=== PATIENT | male | born 1945 | race Caucasian/White ===

== ENCOUNTER 2017-07-11 10:10 | Inpatient (IN) | payer BC, MEDICAID ==
[~2017-07-11] VITALS: Ht 170.2 cm; Wt 74.6 kg
[~2017-07-11 10:10] MED LIST: ACET-66 PO; AMLO-512 PO; ASPI-556 PO; ATOR40TA28 PO; B CO1CAP6 PO; CAPT25TA3 PO; GABA-529 PO; INSLAN SQ; INSU100C14 SQ; OMEP20 PO; PHOSLOC PO
[2017-07-11 10:23] LABS: GLUCOSE,POINT OF CARE 101 MG/DL (70-110)
[2017-07-11 11:46] LABS: BASOPHILS % (AUTO) 1.4 % (0.0-2.0); EOSINOPHILS % (AUTO) 7.1 % (1.0-6.0); HEMATOCRIT 28.3 % (41-53); HEMOGLOBIN 9.8 g/dL (13.5-17.5); LYMPHOCYTES % (AUTO) 23.1 % (22.0-44.0); MEAN CORPUSCULAR HEMOGLOBIN 31.4 pg (26.0-34.0); MEAN CORPUSCULAR HGB CONC 34.4 G/dL (31.0-37.0); MEAN CORPUSCULAR VOLUME 91 fL (80-100); MONOCYTES # (AUTO) 0.5 K/uL (0.1-1.0); MONOCYTES % (AUTO) 12.2 % (2.0-9.0); NEUTROPHILS # (AUTO) 2.5 K/uL (1.8-7.7); NEUTROPHILS % (AUTO) 56.2 % (40.0-70.0); PLATELET COUNT (AUTO) 244 K/uL (150-450); RED BLOOD CELL COUNT(AUTO) 3.11 MIL/uL (4.50-5.90); RED CELL DISTRIBUTION WIDTH 14.5 % (11.5-14.5); WHITE BLOOD COUNT (AUTO) 4.4 K/uL (4.5-11.0)
[2017-07-11 12:03] LABS: ANION GAP 6 mmol/L (8-16); CALCIUM, TOTAL 8.5 mg/dL (8.8-10.5); CARBON DIOXIDE 35 mmol/L (22-29); CHLORIDE 94 mmol/L (98-107); CREATININE 5.95 mg/dL (0.60-1.30); GLOMERULAR FILTR. RATE CALC 9 mL/min (>60); POTASSIUM 3.8 mmol/L (3.5-5.1); SODIUM SERUM 135 mmol/L (136-145); UREA NITROGEN, BLOOD 18 mg/dL (7-18)
[2017-07-11 12:27] LABS: B-TYPE NATRIURETIC PEPTIDE 981 pg/mL (0-100)
[2017-07-11 12:28] LABS: ALANINE AMINOTRANSFERASE 20 U/L (12-78); ALBUMIN 3.4 g/dL (3.4-5.0); ASPARTATE AMINOTRANSFERASE 22 U/L (15-37); BILIRUBIN,TOTAL 0.6 mg/dL (0.1-1.0); CREATINE KINASE MB 1.1 ng/mL (0-5); CREATINE KINASE, TOTAL 148 U/L (39-308); TOTAL PROTEIN, SERUM 8.2 g/dL (6.4-8.2)
[2017-07-11] MEDS ORDERED: AZIT250T9 PO (12:51)
[2017-07-11] MEDS ORDERED: BENZ-51 PO (12:55)
[2017-07-11] MEDS ORDERED: VITAD1000 PO (12:55)
[2017-07-11] MEDS ORDERED: AZITHROMYCIN 500 MG/NS 250 ML IV ONE (13:15)
[2017-07-11] MEDS ORDERED: CefTRIAXone 1 GM/DEXTROSE 50 ML IV ONE (13:15)
[2017-07-11] MEDS ORDERED: BUMETANIDE 0.25 MG/ML 4 ML VIAL IVP ONE (14:00)
[2017-07-11 14:45] VITALS: BP 129/71
[2017-07-11] MEDS ORDERED: ALBUTEROL SULFATE 2.5 MG/0.5 ML NEB SOLUTION NEB PRN (14:45)
[2017-07-11] MEDS ORDERED: BISACODYL 10 MG RECTAL RECTAL SUPPOSITORY PR PRN (14:45)
[2017-07-11] MEDS ORDERED: OxyCODONE HCL/ACETAMINOPHEN 5-325 MG TABLET PO PRN (14:45)
[2017-07-11] MEDS ORDERED: INSULIN ASPART 100 UNITS/ML SQ PRN (15:00)
[2017-07-11] MEDS ORDERED: DEXTROSE 50%-WATER 25 GM/50 ML SYRINGE IVP PRN (15:00)
[2017-07-11] MEDS ORDERED: PNEUMOCOCCAL VACCINE POLYVALENT 0.5 ML VIAL [PPSV23] IM ONE (15:30)
[2017-07-11 16:09] VITALS: BP 139/72
[2017-07-11] MEDS: VITAMIN B COMP/VIT C/FOLIC ACID CAPSULE PO SCH (16:37)
[2017-07-11] MEDS: CALCIUM ACETATE 667 MG CAPSULE PO SCH (18:29)
[2017-07-11 19:32] VITALS: BP 126/71
[2017-07-11] MEDS: DOCUSATE SODIUM 100 MG CAPSULE PO SCH (20:09)
[2017-07-11] MEDS: HEPARIN SODIUM,PORCINE 5,000 UNITS/ML VIAL SQ SCH (20:09)
[2017-07-11 20:15] LABS: GLUCOSE,POINT OF CARE 114 MG/DL (70-110)
[2017-07-11 23:35] VITALS: BP 132/77
[2017-07-12 04:34] VITALS: BP 139/78
[2017-07-12 07:04] VITALS: BP 139/75
[2017-07-12] MEDS: ASPIRIN 81 MG CHEWABLE TABLET PO SCH (08:55)
[2017-07-12] MEDS: HEPARIN SODIUM,PORCINE 5,000 UNITS/ML VIAL SQ SCH ×2 (08:55→20:20)
[2017-07-12] MEDS: DOCUSATE SODIUM 100 MG CAPSULE PO SCH ×2 (08:55→20:20)
[2017-07-12] MEDS: PANTOPRAZOLE SODIUM 40 MG DR TABLET PO SCH (08:55)
[2017-07-12] MEDS: CALCIUM ACETATE 667 MG CAPSULE PO SCH ×3 (08:55→17:56)
[2017-07-12] MEDS: VITAMIN B COMP/VIT C/FOLIC ACID CAPSULE PO SCH (08:55)
[2017-07-12] MEDS ORDERED: VITAMIN B COMP/VIT C/FOLIC ACID CAPSULE PO SCH (09:00)
[2017-07-12 11:37] VITALS: BP 138/69
[2017-07-12 16:04] VITALS: BP 145/80
[2017-07-12 17:37] LABS: GLUCOSE,POINT OF CARE 83 MG/DL (70-110)
[2017-07-12] MEDS: ACETAMINOPHEN 325 MG TABLET PO PRN (17:55)
[2017-07-12 19:46] VITALS: BP 132/66
[2017-07-12 23:50] VITALS: BP 121/70
[2017-07-13 04:09] VITALS: BP 140/76
[2017-07-13 06:06] LABS: CALCIUM, TOTAL 8.6 mg/dL (8.8-10.5); CREATININE 10.53 mg/dL (0.60-1.30); POTASSIUM 4.9 mmol/L (3.5-5.1)
[2017-07-13 07:06] LABS: BASOPHILS % (AUTO) 0.9 % (0.0-2.0); HEMATOCRIT 28.4 % (41-53); HEMOGLOBIN 9.7 g/dL (13.5-17.5); LYMPHOCYTES # (AUTO) 1.3 K/uL (1.0-4.8); LYMPHOCYTES % (AUTO) 18.4 % (22.0-44.0); MEAN CORPUSCULAR HGB CONC 34.1 G/dL (31.0-37.0); MEAN CORPUSCULAR VOLUME 91 fL (80-100); MONOCYTES # (AUTO) 0.6 K/uL (0.1-1.0); MONOCYTES % (AUTO) 8.6 % (2.0-9.0); NEUTROPHILS # (AUTO) 4.7 K/uL (1.8-7.7); NEUTROPHILS % (AUTO) 66.1 % (40.0-70.0); PLATELET COUNT (AUTO) 241 K/uL (150-450); RED BLOOD CELL COUNT(AUTO) 3.12 MIL/uL (4.50-5.90); RED CELL DISTRIBUTION WIDTH 14.8 % (11.5-14.5); WHITE BLOOD COUNT (AUTO) 7.1 K/uL (4.5-11.0)
[2017-07-13 07:41] VITALS: BP 146/74
[2017-07-13] MEDS: DOCUSATE SODIUM 100 MG CAPSULE PO SCH ×2 (08:41→20:08)
[2017-07-13] MEDS: CALCIUM ACETATE 667 MG CAPSULE PO SCH ×3 (08:41→17:35)
[2017-07-13] MEDS: VITAMIN B COMP/VIT C/FOLIC ACID CAPSULE PO SCH (08:41)
[2017-07-13] MEDS: PANTOPRAZOLE SODIUM 40 MG DR TABLET PO SCH (08:41)
[2017-07-13] MEDS: ASPIRIN 81 MG CHEWABLE TABLET PO SCH (08:41)
[2017-07-13] MEDS: HEPARIN SODIUM,PORCINE 5,000 UNITS/ML VIAL SQ SCH ×2 (08:42→20:08)
[2017-07-13 11:22] VITALS: BP 132/73
[2017-07-13 16:00] VITALS: BP 125/74
[2017-07-13 16:37] LABS: PROTHROMBIN TIME 10.7 SEC (9.4-11.6)
[2017-07-13 16:43] LABS: GLUCOSE,POINT OF CARE 120 MG/DL (70-110)
[2017-07-13 16:47] LABS: GLUCOSE,POINT OF CARE 109 MG/DL (70-110)
[2017-07-13 19:19] VITALS: BP 140/72
[2017-07-13] MEDS: ACETAMINOPHEN 325 MG TABLET PO PRN (20:08)
[2017-07-13 23:41] VITALS: BP 132/74
[2017-07-14 04:22] VITALS: BP 129/69
[2017-07-14 06:35] LABS: BASOPHILS % (AUTO) 1.1 % (0.0-2.0); EOSINOPHILS % (AUTO) 6.5 % (1.0-6.0); HEMOGLOBIN 9.6 g/dL (13.5-17.5); LYMPHOCYTES # (AUTO) 1.8 K/uL (1.0-4.8); LYMPHOCYTES % (AUTO) 26.1 % (22.0-44.0); MEAN CORPUSCULAR HEMOGLOBIN 31.2 pg (26.0-34.0); MEAN CORPUSCULAR HGB CONC 34.1 G/dL (31.0-37.0); MEAN CORPUSCULAR VOLUME 91 fL (80-100); MONOCYTES # (AUTO) 0.6 K/uL (0.1-1.0); MONOCYTES % (AUTO) 9.2 % (2.0-9.0); NEUTROPHILS # (AUTO) 3.9 K/uL (1.8-7.7); NEUTROPHILS % (AUTO) 57.1 % (40.0-70.0); PLATELET COUNT (AUTO) 232 K/uL (150-450); RED BLOOD CELL COUNT(AUTO) 3.07 MIL/uL (4.50-5.90); RED CELL DISTRIBUTION WIDTH 14.2 % (11.5-14.5); WHITE BLOOD COUNT (AUTO) 6.8 K/uL (4.5-11.0)
[2017-07-14 07:18] LABS: GLUCOSE,POINT OF CARE 84 MG/DL (70-110)
[2017-07-14 07:45] LABS: CREATININE 11.72 mg/dL (0.60-1.30); MAGNESIUM 2.5 mg/dL (1.80-2.40); POTASSIUM 4.9 mmol/L (3.5-5.1); THYROID STIMULATING HORMONE 0.98 uIU/mL (0.36-3.74); TOTAL PROTEIN, SERUM 7.6 g/dL (6.4-8.2)
[2017-07-14] MEDS: CALCIUM ACETATE 667 MG CAPSULE PO SCH ×3 (08:00→18:13)
[2017-07-14] MEDS ORDERED: SODIUM CHLORIDE 0.9% 1,000 ML IV ONE (08:39)
[2017-07-14] MEDS: PANTOPRAZOLE SODIUM 40 MG DR TABLET PO SCH (09:00)
[2017-07-14] MEDS: VITAMIN B COMP/VIT C/FOLIC ACID CAPSULE PO SCH (09:00)
[2017-07-14] MEDS: HEPARIN SODIUM,PORCINE 5,000 UNITS/ML VIAL SQ SCH ×2 (09:00→20:10)
[2017-07-14] MEDS: ASPIRIN 81 MG CHEWABLE TABLET PO SCH (09:00)
[2017-07-14] MEDS: DOCUSATE SODIUM 100 MG CAPSULE PO SCH ×2 (09:00→20:10)
[2017-07-14] MEDS ORDERED: ALBUMIN HUMAN 25%-12.5GM/50ML IV BOTTLE IV PRN (09:15)
[2017-07-14] MEDS ORDERED: MANNITOL 25%-12.5 GM/50 ML VIAL IVP PRN (09:15)
[2017-07-14 11:39] VITALS: BP 146/76
[2017-07-14 14:02] LABS: APPEARANCE,UNSPUN,BODY FLUID CLOUDY (CLEAR)
[2017-07-14 14:03] LABS: COLOR,BODY FLUID YELLOW (LT YELLOW)
[2017-07-14 14:04] LABS: OTHER CELLS,BODY FLUID 2
[2017-07-14 16:40] VITALS: BP 125/56
[2017-07-14 19:22] VITALS: BP 130/71
[2017-07-14 19:42] LABS: ABG A-A DIFF O2 38.2 mmHg (10-20.0); ABG BASE EXCESS 8.8 mmol/L (-2.0-3.0); ABG OXYHEMOGLOBIN 97.6 % (94.0-100.0); ABG PCO2 39 mmHg (35-45); ABG PH 7.522 (7.35-7.450); ALLEN TEST, BLOOD GAS POSITIVE; TEMPERATURE, FAHRENHEIT, BG 98.6 FAHREN (96.0-98.6)
[2017-07-15 00:13] VITALS: BP 135/75
[2017-07-15 04:49] VITALS: BP 119/63
[2017-07-15] MEDS: VITAMIN B COMP/VIT C/FOLIC ACID CAPSULE PO SCH (08:07)
[2017-07-15] MEDS: PANTOPRAZOLE SODIUM 40 MG DR TABLET PO SCH (08:07)
[2017-07-15] MEDS: CALCIUM ACETATE 667 MG CAPSULE PO SCH (08:07)
[2017-07-15] MEDS: ASPIRIN 81 MG CHEWABLE TABLET PO SCH (08:08)
[2017-07-15] MEDS: DOCUSATE SODIUM 100 MG CAPSULE PO SCH (08:08)
[2017-07-15] MEDS: HEPARIN SODIUM,PORCINE 5,000 UNITS/ML VIAL SQ SCH (08:08)
[2017-07-15 08:45] VITALS: BP 137/66
[2017-07-15 09:59] LABS: GLUCOSE,POINT OF CARE 88 MG/DL (70-110)
[2017-07-15 09:59] LABS: GLUCOSE,POINT OF CARE 98 MG/DL (70-110)
[2017-07-15 10:34] LABS: GLUCOSE,POINT OF CARE 122 MG/DL (70-110)
[2017-07-15 11:59] VITALS: BP 129/74
[2017-07-15 14:42] LABS: TOTAL PROTEIN,BODY FLUID,REF 2.7 g/dL
[2017-07-18 19:53] LABS: GLUCOSE COMMENT 1 Juice/Food/D50 Given; GLUCOSE,POINT OF CARE 81 MG/DL (70-110)
[2017-07-18 19:53] LABS: GLUCOSE,POINT OF CARE 106 MG/DL (70-110)
[2017-07-18 19:53] LABS: GLUCOSE,POINT OF CARE 80 MG/DL (70-110)
[2017-07-18 19:57] LABS: GLUCOSE,POINT OF CARE 89 MG/DL (70-110)
[2017-07-18 19:58] LABS: GLUCOSE,POINT OF CARE 70 MG/DL (70-110)
[2017-07-18 19:58] LABS: GLUCOSE,POINT OF CARE 107 MG/DL (70-110)
[2017-07-18 19:58] LABS: GLUCOSE,POINT OF CARE 129 MG/DL (70-110)
[2017-07-18 19:58] LABS: GLUCOSE,POINT OF CARE 71 MG/DL (70-110)
[2017-07-18 19:58] LABS: GLUCOSE,POINT OF CARE 105 MG/DL (70-110)
== END 2017-07-15 13:55 | disposition home or self-care (01) | DRG 291 ==
LOC: EMS 10:12 → 5S 13:22 → 5N 07-14 20:30
PROVIDERS: ADMIT Internal Medicine; ATTEND Internal Medicine
PROC: 0W993ZZ Drainage of Right Pleural Cavity, Percutaneous Approach (ICD-10-PCS; principal; 2017-07-14)
DX: I13.2 Hypertensive heart and chronic kidney disease with heart failure and with stage 5 chronic kidney disease, or end stage renal disease (principal); I50.41 Acute combined systolic (congestive) and diastolic (congestive) heart failure; J90 Pleural effusion, not elsewhere classified; N18.6 End stage renal disease; E87.1 Hypo-osmolality and hyponatremia; E11.21 Type 2 diabetes mellitus with diabetic nephropathy; D63.1 Anemia in chronic kidney disease; E11.22 Type 2 diabetes mellitus with diabetic chronic kidney disease; E78.2 Mixed hyperlipidemia; K21.9 Gastro-esophageal reflux disease without esophagitis; Z87.891 Personal history of nicotine dependence; Z99.2 Dependence on renal dialysis; Z79.82 Long term (current) use of aspirin; Z79.4 Long term (current) use of insulin; Z89.421 Acquired absence of other right toe(s)
CPT/HCPCS: 32555; 71020; 76942; 82465; 82805; 82945; 82962; 83605; 83615; 83735; 83986; 84100; 84155; 84157; 84443; 87015; 87040; 87070; 87081; 87101; 87205; 87340; 88108; 89051; 90471; 90935; 93005; 96365; 96368; 96375; 99285; J0456; J0696; J1644; J3490; J7030

== ENCOUNTER 2018-04-25 14:29 | Emergency (ER) | payer BC, MEDICAID ==
[~2018-04-25] VITALS: Ht 170.2 cm; Wt 74.0 kg
[~2018-04-25 14:29] MED LIST changes: -AMLO-512 PO; -CAPT25TA3 PO; -GABA-529 PO; -INSLAN SQ; -INSU100C14 SQ; -PHOSLOC PO; +VITAD1000 PO
[2018-04-25 14:48] LABS: GLUCOSE,POINT OF CARE 74 MG/DL (70-110)
[2018-04-25 15:48] LABS: BASOPHILS % (AUTO) 0.7 % (0.0-2.0); EOSINOPHILS % (AUTO) 4.9 % (1.0-6.0); HEMATOCRIT 35.6 % (41-53); HEMOGLOBIN 12.1 g/dL (13.5-17.5); LYMPHOCYTES # (AUTO) 1.7 K/uL (1.0-4.8); LYMPHOCYTES % (AUTO) 24.5 % (22.0-44.0); MEAN CORPUSCULAR HEMOGLOBIN 32.3 pg (26.0-34.0); MEAN CORPUSCULAR VOLUME 95 fL (80-100); MONOCYTES # (AUTO) 0.7 K/uL (0.1-1.0); MONOCYTES % (AUTO) 10.9 % (2.0-9.0); PLATELET COUNT (AUTO) 267 K/uL (150-450); RED BLOOD CELL COUNT(AUTO) 3.74 MIL/uL (4.50-5.90)
[2018-04-25 15:58] LABS: CALCIUM, TOTAL 9.2 mg/dL (8.8-10.5); CREATININE 8.29 mg/dL (0.60-1.30); POTASSIUM 5.2 mmol/L (3.5-5.1)
[2018-04-25 16:04] LABS: ALBUMIN 3.6 g/dL (3.4-5.0); BILIRUBIN,TOTAL 0.5 mg/dL (0.1-1.0); TOTAL PROTEIN, SERUM 8.1 g/dL (6.4-8.2)
[2018-04-25 16:18] LABS: GLUCOSE,POINT OF CARE 83 MG/DL (70-110)
[2018-04-25] MEDS ORDERED: ALBUTEROL SULFATE 2.5 MG/0.5 ML NEB SOLUTION NEB ONE (17:45)
[2018-04-25] MEDS ORDERED: 0.9% SODIUM CHLORIDE 5 ML NEB SOLUTION NEB ONE (18:22)
[2018-04-25 19:30] VITALS: BP 170/77
[2018-04-25 20:09] LABS: GLUCOSE,POINT OF CARE 137 MG/DL (70-110)
== END 2018-04-25 20:05 | disposition home or self-care (01) ==
LOC: EMS 14:30
DX: E87.5 Hyperkalemia (principal); E11.22 Type 2 diabetes mellitus with diabetic chronic kidney disease; I13.2 Hypertensive heart and chronic kidney disease with heart failure and with stage 5 chronic kidney disease, or end stage renal disease; N18.6 End stage renal disease; I50.9 Heart failure, unspecified; Z99.2 Dependence on renal dialysis; Z79.899 Other long term (current) drug therapy; Z79.82 Long term (current) use of aspirin
CPT/HCPCS: 36415; 71045; 80053; 82962; 85025; 94640; 99285; J7613

== ENCOUNTER 2019-10-15 13:31 | Inpatient (IN) | payer BC, MEDICAID ==
[~2019-10-15] VITALS: Ht 170.2 cm; Wt 68.0 kg
[~2019-10-15 13:31] MED LIST changes: +CHOL100018 PO; -VITAD1000 PO
[2019-10-15] MEDS ORDERED: ALBUTEROL SULFATE 2.5 MG/0.5 ML NEB SOLUTION NEB PRN (15:45)
[2019-10-15] MEDS ORDERED: ACETAMINOPHEN 325 MG TABLET PO PRN (15:45)
[2019-10-15] MEDS ORDERED: INSULIN LISPRO 100 UNITS/ML SQ PRN (15:45)
[2019-10-15] MEDS ORDERED: DEXTROSE 50%-WATER 25 GM/50 ML SYRINGE IVP PRN (15:45)
[2019-10-15] MEDS ORDERED: DARBEPOETIN ALFA 60 MCG/0.3 ML SYRINGE SQ SCH (16:11)
[2019-10-15 17:06] VITALS: BP 112/67
[2019-10-15 18:04] LABS: GLUCOMETER DEV NAME(LOC) 2WR.2; GLUCOSE,POINT OF CARE 96 MG/DL (70-110)
[2019-10-15] MEDS: DOCUSATE SODIUM 100 MG/10 ML LIQUID UDCUP JT SCH (21:00)
[2019-10-15] MEDS ORDERED: PANTOPRAZOLE SODIUM 40 MG DR TABLET PO SCH (21:00)
[2019-10-15] MEDS: SENNA 218 MG/5 ML SYRUP ORAL.SYG JT SCH (21:00)
[2019-10-15] MEDS: LANSOPRAZOLE 30 MG SOLUBLE TABLET JT SCH (21:54)
[2019-10-15] MEDS: ATORVASTATIN CALCIUM 40 MG TABLET JT SCH (21:54)
[2019-10-15 22:23] LABS: GLUCOMETER DEV NAME(LOC) 2WR.1C; GLUCOSE,POINT OF CARE 120 MG/DL (70-110)
[2019-10-16] VITALS (7 sets, daily range): BP systolic 98–149; BP diastolic 52–76
[2019-10-16 06:32] LABS: GLUCOMETER DEV NAME(LOC) 2WR.2; GLUCOSE,POINT OF CARE 136 MG/DL (70-110)
[2019-10-16 07:36] LABS: BASOPHILS % (AUTO) 0.6 % (0.0-2.0); EOSINOPHILS % (AUTO) 11.2 % (1.0-6.0); HEMATOCRIT 27.6 % (41-53); HEMOGLOBIN 9.5 g/dL (13.5-17.5); LYMPHOCYTES # (AUTO) 1.9 K/uL (1.0-4.8); LYMPHOCYTES % (AUTO) 25.2 % (22.0-44.0); MEAN CORPUSCULAR HEMOGLOBIN 31.4 pg (26.0-34.0); MEAN CORPUSCULAR HGB CONC 34.4 G/dL (31.0-37.0); MEAN CORPUSCULAR VOLUME 91 fL (80-100); MONOCYTES # (AUTO) 0.8 K/uL (0.1-1.0); MONOCYTES % (AUTO) 10.2 % (2.0-9.0); NEUTROPHILS # (AUTO) 3.9 K/uL (1.8-7.7); NEUTROPHILS % (AUTO) 52.8 % (40.0-70.0); PLATELET COUNT (AUTO) 285 K/uL (150-450); RED BLOOD CELL COUNT(AUTO) 3.03 MIL/uL (4.50-5.90); RED CELL DISTRIBUTION WIDTH 19.5 % (11.5-14.5)
[2019-10-16 07:48] LABS: CALCIUM, TOTAL 8.6 mg/dL (8.8-10.5); CREATININE 4.31 mg/dL (0.60-1.30); MAGNESIUM 2.1 mg/dL (1.80-2.40); POTASSIUM 3.8 mmol/L (3.5-5.1)
[2019-10-16] MEDS: ASPIRIN 81 MG CHEWABLE TABLET JT SCH (08:54)
[2019-10-16] MEDS: VITAMIN B COMP/VIT C/FOLIC ACID CAPSULE JT SCH (08:54)
[2019-10-16] MEDS: THIAMINE HCL 100 MG TABLET JT SCH (08:55)
[2019-10-16] MEDS: ESCITALOPRAM OXALATE 20 MG TABLET JT SCH (08:55)
[2019-10-16] MEDS: DOCUSATE SODIUM 100 MG/10 ML LIQUID UDCUP JT SCH ×2 (08:55→21:00)
[2019-10-16] MEDS: DARBEPOETIN ALFA 60 MCG/0.3 ML SYRINGE SQ SCH (08:56)
[2019-10-16 08:58] LABS: HEMOGLOBIN A1C 4.9 % (4.5-6.2)
[2019-10-16 12:11] LABS: GLUCOMETER DEV NAME(LOC) 2WR.2; GLUCOSE,POINT OF CARE 121 MG/DL (70-110)
[2019-10-16] MEDS ORDERED: EPOETIN ALFA 10,000 UNITS/ML VIAL SQ SCH (12:30)
[2019-10-16] MEDS: HEPARIN SODIUM,PORCINE 5,000 UNITS/ML VIAL SQ SCH ×2 (17:02→21:00)
[2019-10-16 19:51] LABS: GLUCOMETER DEV NAME(LOC) 2WR.2; GLUCOSE,POINT OF CARE 86 MG/DL (70-110)
[2019-10-16] MEDS: SENNA 218 MG/5 ML SYRUP ORAL.SYG JT SCH (21:00)
[2019-10-16] MEDS: ATORVASTATIN CALCIUM 40 MG TABLET JT SCH (21:20)
[2019-10-16] MEDS: COLD CREAM, SKIN EMOLLIENT 170 GM JAR TP SCH (21:22)
[2019-10-16] MEDS: LANSOPRAZOLE 30 MG SOLUBLE TABLET JT SCH (21:34)
[2019-10-16 22:42] LABS: GLUCOMETER DEV NAME(LOC) 2WR.2; GLUCOSE,POINT OF CARE 129 MG/DL (70-110)
[2019-10-17 05:11] VITALS: BP 137/72
[2019-10-17 06:32] VITALS: BP 139/75
[2019-10-17] MEDS ORDERED: SODIUM CHLORIDE 0.9% 1,000 ML ONE (06:34)
[2019-10-17 06:38] LABS: GLUCOMETER DEV NAME(LOC) 2WR.2; GLUCOSE,POINT OF CARE 127 MG/DL (70-110)
[2019-10-17 10:27] LABS: % IRON SATURATION 28.9 % (30-44)
[2019-10-17 11:00] VITALS: BP 104/55
[2019-10-17] MEDS: HEPARIN SODIUM,PORCINE 5,000 UNITS/ML VIAL SQ SCH ×3 (11:25→20:37)
[2019-10-17] MEDS: ASPIRIN 81 MG CHEWABLE TABLET JT SCH (11:25)
[2019-10-17] MEDS: VITAMIN B COMP/VIT C/FOLIC ACID CAPSULE JT SCH (11:25)
[2019-10-17] MEDS: DOCUSATE SODIUM 100 MG/10 ML LIQUID UDCUP JT SCH ×2 (11:26→20:34)
[2019-10-17] MEDS: THIAMINE HCL 100 MG TABLET JT SCH (11:26)
[2019-10-17] MEDS: ESCITALOPRAM OXALATE 20 MG TABLET JT SCH (11:26)
[2019-10-17] MEDS: COLD CREAM, SKIN EMOLLIENT 170 GM JAR TP SCH ×2 (11:27→20:35)
[2019-10-17 16:00] VITALS: BP 140/71
[2019-10-17] MEDS: SENNA 218 MG/5 ML SYRUP ORAL.SYG JT SCH (20:34)
[2019-10-17] MEDS: ATORVASTATIN CALCIUM 40 MG TABLET JT SCH (20:34)
[2019-10-17] MEDS: LANSOPRAZOLE 30 MG SOLUBLE TABLET JT SCH (20:35)
[2019-10-17 22:06] LABS: GLUCOMETER DEV NAME(LOC) 2WR.1C; GLUCOSE,POINT OF CARE 99 MG/DL (70-110)
[2019-10-17 22:06] LABS: GLUCOMETER DEV NAME(LOC) 2WR.1C; GLUCOSE,POINT OF CARE 116 MG/DL (70-110)
[2019-10-17 22:07] LABS: GLUCOMETER DEV NAME(LOC) 2WR.1C; GLUCOSE,POINT OF CARE 95 MG/DL (70-110)
[2019-10-18 05:14] VITALS: BP 124/67
[2019-10-18 06:09] LABS: GLUCOMETER DEV NAME(LOC) 2WR.2; GLUCOSE,POINT OF CARE 95 MG/DL (70-110)
[2019-10-18 07:41] VITALS: BP 144/70
[2019-10-18] MEDS: ESCITALOPRAM OXALATE 20 MG TABLET PO SCH (08:00)
[2019-10-18] MEDS: VITAMIN B COMP/VIT C/FOLIC ACID CAPSULE PO SCH (08:01)
[2019-10-18] MEDS: HEPARIN SODIUM,PORCINE 5,000 UNITS/ML VIAL SQ SCH ×3 (08:01→22:24)
[2019-10-18] MEDS: THIAMINE HCL 100 MG TABLET PO SCH (08:01)
[2019-10-18] MEDS: ASPIRIN 81 MG CHEWABLE TABLET PO SCH (08:01)
[2019-10-18] MEDS: DOCUSATE SODIUM 100 MG CAPSULE PO SCH ×2 (08:02→22:25)
[2019-10-18] MEDS: COLD CREAM, SKIN EMOLLIENT 170 GM JAR TP SCH ×2 (08:02→22:24)
[2019-10-18] MEDS ORDERED: HydrOXYzine HCL 10 MG TABLET PO PRN (12:30)
[2019-10-18 14:02] LABS: GLUCOMETER DEV NAME(LOC) 2WR.2; GLUCOSE,POINT OF CARE 106 MG/DL (70-110)
[2019-10-18 15:00] VITALS: BP 137/68
[2019-10-18 19:23] LABS: GLUCOMETER DEV NAME(LOC) 2WR.1C; GLUCOSE,POINT OF CARE 80 MG/DL (70-110)
[2019-10-18] MEDS ORDERED: GABA-529 PO (20:01)
[2019-10-18] MEDS ORDERED: PHOSLOC PO (20:04)
[2019-10-18] MEDS ORDERED: AMLO10TA7 PO (20:04)
[2019-10-18] MEDS ORDERED: INSU200I SQ (20:04)
[2019-10-18] MEDS ORDERED: INSU100I21 SQ (20:04)
[2019-10-18] MEDS ORDERED: FOLI0.8T22 PO (20:04)
[2019-10-18] MEDS: ATORVASTATIN CALCIUM 40 MG TABLET PO SCH (22:25)
[2019-10-18] MEDS: SENNA 187 MG TABLET PO SCH (22:25)
[2019-10-18 23:31] VITALS: BP 144/72
[2019-10-19] MEDS: CAMPHOR/MENTHOL 222 ML LOTION TP PRN (02:20)
[2019-10-19 06:23] LABS: GLUCOMETER DEV NAME(LOC) 2WR.1C; GLUCOSE,POINT OF CARE 120 MG/DL (70-110)
[2019-10-19] MEDS: HEPARIN SODIUM,PORCINE 5,000 UNITS/ML VIAL SQ SCH ×3 (07:59→20:05)
[2019-10-19] MEDS: THIAMINE HCL 100 MG TABLET PO SCH (08:00)
[2019-10-19] MEDS: ESCITALOPRAM OXALATE 20 MG TABLET PO SCH (08:00)
[2019-10-19] MEDS: ASPIRIN 81 MG CHEWABLE TABLET PO SCH (08:00)
[2019-10-19] MEDS: DOCUSATE SODIUM 100 MG CAPSULE PO SCH ×2 (08:00→20:05)
[2019-10-19] MEDS: VITAMIN B COMP/VIT C/FOLIC ACID CAPSULE PO SCH (08:00)
[2019-10-19] MEDS: ACETAMINOPHEN 650 MG/20.3 ML SOLUTION UDCUP JT PRN ×2 (09:09→12:49)
[2019-10-19] MEDS: COLD CREAM, SKIN EMOLLIENT 170 GM JAR TP SCH ×2 (09:32→20:05)
[2019-10-19 18:30] VITALS: BP 136/70
[2019-10-19] MEDS: SENNA 187 MG TABLET PO SCH (20:05)
[2019-10-19] MEDS: ATORVASTATIN CALCIUM 40 MG TABLET PO SCH (20:05)
[2019-10-19] MEDS: LANSOPRAZOLE 30 MG SOLUBLE TABLET PO SCH (20:05)
[2019-10-19 20:11] LABS: GLUCOMETER DEV NAME(LOC) 2WR.2; GLUCOSE,POINT OF CARE 91 MG/DL (70-110)
[2019-10-19 20:39] LABS: GLUCOMETER DEV NAME(LOC) 2WR.1C; GLUCOSE,POINT OF CARE 64 MG/DL (70-110)
[2019-10-19] MEDS ORDERED: LANSOPRAZOLE 30 MG CAPSULE PO SCH (21:00)
[2019-10-19 23:00] VITALS: BP 132/66
[2019-10-20 06:01] LABS: GLUCOMETER DEV NAME(LOC) 2WR.2; GLUCOSE,POINT OF CARE 114 MG/DL (70-110)
[2019-10-20] MEDS: CAMPHOR/MENTHOL 222 ML LOTION TP PRN ×2 (06:07→18:40)
[2019-10-20 07:27] VITALS: BP 144/67
[2019-10-20] MEDS: ESCITALOPRAM OXALATE 20 MG TABLET PO SCH (08:11)
[2019-10-20] MEDS: ASPIRIN 81 MG CHEWABLE TABLET PO SCH (08:12)
[2019-10-20] MEDS: HEPARIN SODIUM,PORCINE 5,000 UNITS/ML VIAL SQ SCH ×3 (08:12→20:07)
[2019-10-20] MEDS: COLD CREAM, SKIN EMOLLIENT 170 GM JAR TP SCH ×2 (08:12→20:08)
[2019-10-20] MEDS: DOCUSATE SODIUM 100 MG CAPSULE PO SCH ×2 (08:12→20:07)
[2019-10-20] MEDS: VITAMIN B COMP/VIT C/FOLIC ACID CAPSULE PO SCH (08:12)
[2019-10-20] MEDS: THIAMINE HCL 100 MG TABLET PO SCH (08:12)
[2019-10-20] MEDS: OMEPRAZOLE 20 MG CAPSULE PO SCH (10:10)
[2019-10-20 16:48] VITALS: BP 125/67
[2019-10-20 18:17] LABS: GLUCOMETER DEV NAME(LOC) 2WR.2; GLUCOSE,POINT OF CARE 104 MG/DL (70-110)
[2019-10-20] MEDS: ATORVASTATIN CALCIUM 40 MG TABLET PO SCH (20:07)
[2019-10-20] MEDS: SENNA 187 MG TABLET PO SCH (20:07)
[2019-10-20] MEDS: LANSOPRAZOLE 30 MG SOLUBLE TABLET PO SCH (20:08)
[2019-10-20 23:30] VITALS: BP 145/77
[2019-10-21 05:51] LABS: GLUCOMETER DEV NAME(LOC) 2WR.2; GLUCOSE,POINT OF CARE 99 MG/DL (70-110)
[2019-10-21] MEDS: CAMPHOR/MENTHOL 222 ML LOTION TP PRN (06:13)
[2019-10-21 07:39] VITALS: BP 157/82
[2019-10-21] MEDS: ESCITALOPRAM OXALATE 20 MG TABLET PO SCH (08:01)
[2019-10-21] MEDS: OMEPRAZOLE 20 MG CAPSULE PO SCH (08:01)
[2019-10-21] MEDS: VITAMIN B COMP/VIT C/FOLIC ACID CAPSULE PO SCH (08:02)
[2019-10-21] MEDS: THIAMINE HCL 100 MG TABLET PO SCH (08:02)
[2019-10-21] MEDS: ASPIRIN 81 MG CHEWABLE TABLET PO SCH (08:02)
[2019-10-21] MEDS: DOCUSATE SODIUM 100 MG CAPSULE PO SCH ×2 (08:02→21:31)
[2019-10-21] MEDS: HEPARIN SODIUM,PORCINE 5,000 UNITS/ML VIAL SQ SCH ×3 (08:03→21:30)
[2019-10-21] MEDS: COLD CREAM, SKIN EMOLLIENT 170 GM JAR TP SCH ×2 (08:04→21:31)
[2019-10-21] MEDS: ACETAMINOPHEN 650 MG/20.3 ML SOLUTION UDCUP JT PRN (10:32)
[2019-10-21] MEDS ORDERED: SODIUM CHLORIDE 0.9% 2,000 ML ONE (13:36)
[2019-10-21 15:38] VITALS: BP 156/90
[2019-10-21 17:54] LABS: GLUCOMETER DEV NAME(LOC) 2WR.2; GLUCOSE,POINT OF CARE 83 MG/DL (70-110)
[2019-10-21 17:58] LABS: BASOPHILS % (AUTO) 0.8 % (0.0-2.0); EOSINOPHILS % (AUTO) 10.4 % (1.0-6.0); HEMATOCRIT 26.4 % (41-53); HEMOGLOBIN 8.9 g/dL (13.5-17.5); LYMPHOCYTES # (AUTO) 2.1 K/uL (1.0-4.8); LYMPHOCYTES % (AUTO) 28.1 % (22.0-44.0); MEAN CORPUSCULAR HEMOGLOBIN 30.8 pg (26.0-34.0); MEAN CORPUSCULAR HGB CONC 33.8 G/dL (31.0-37.0); MEAN CORPUSCULAR VOLUME 91 fL (80-100); MONOCYTES # (AUTO) 0.8 K/uL (0.1-1.0); MONOCYTES % (AUTO) 10.5 % (2.0-9.0); NEUTROPHILS # (AUTO) 3.7 K/uL (1.8-7.7); NEUTROPHILS % (AUTO) 50.2 % (40.0-70.0); PLATELET COUNT (AUTO) 267 K/uL (150-450); RED CELL DISTRIBUTION WIDTH 18.8 % (11.5-14.5)
[2019-10-21 18:18] LABS: CALCIUM, TOTAL 8.5 mg/dL (8.8-10.5); CREATININE 5.56 mg/dL (0.60-1.30); POTASSIUM 4.5 mmol/L (3.5-5.1)
[2019-10-21 18:30] VITALS: BP 141/76
[2019-10-21 18:45] LABS: MAGNESIUM 2.3 mg/dL (1.80-2.40); PHOSPHORUS 2.1 mg/dL (2.5-4.9)
[2019-10-21] MEDS: LANSOPRAZOLE 30 MG SOLUBLE TABLET PO SCH (21:29)
[2019-10-21] MEDS: ATORVASTATIN CALCIUM 40 MG TABLET PO SCH (21:31)
[2019-10-21] MEDS: SENNA 187 MG TABLET PO SCH (21:31)
[2019-10-21 23:20] VITALS: BP 130/68
[2019-10-22 05:24] LABS: GLUCOMETER DEV NAME(LOC) 2WR.1C; GLUCOSE,POINT OF CARE 75 MG/DL (70-110)
[2019-10-22 06:17] LABS: GLUCOMETER DEV NAME(LOC) 2WR.1C; GLUCOSE,POINT OF CARE 108 MG/DL (70-110)
[2019-10-22 07:38] VITALS: BP 151/78
[2019-10-22] MEDS: COLD CREAM, SKIN EMOLLIENT 170 GM JAR TP SCH ×2 (09:21→21:23)
[2019-10-22] MEDS: THIAMINE HCL 100 MG TABLET PO SCH (09:22)
[2019-10-22] MEDS: ASPIRIN 81 MG CHEWABLE TABLET PO SCH (09:22)
[2019-10-22] MEDS: OMEPRAZOLE 20 MG CAPSULE PO SCH (09:22)
[2019-10-22] MEDS: ESCITALOPRAM OXALATE 20 MG TABLET PO SCH (09:22)
[2019-10-22] MEDS: VITAMIN B COMP/VIT C/FOLIC ACID CAPSULE PO SCH (09:22)
[2019-10-22] MEDS: HEPARIN SODIUM,PORCINE 5,000 UNITS/ML VIAL SQ SCH ×3 (09:22→21:24)
[2019-10-22] MEDS: DOCUSATE SODIUM 100 MG CAPSULE PO SCH ×2 (09:22→21:23)
[2019-10-22] MEDS: CAMPHOR/MENTHOL 222 ML LOTION TP PRN ×2 (09:23→21:23)
[2019-10-22 16:39] VITALS: BP 177/77
[2019-10-22 18:25] LABS: GLUCOMETER DEV NAME(LOC) 2WR.2; GLUCOSE,POINT OF CARE 90 MG/DL (70-110)
[2019-10-22] MEDS: ONDANSETRON HCL 4 MG TABLET PO PRN (18:54)
[2019-10-22] MEDS: ATORVASTATIN CALCIUM 40 MG TABLET PO SCH (21:23)
[2019-10-22] MEDS: SENNA 187 MG TABLET PO SCH (21:23)
[2019-10-22] MEDS: LANSOPRAZOLE 30 MG SOLUBLE TABLET PO SCH (21:26)
[2019-10-22 23:30] VITALS: BP 152/76
[2019-10-23 05:54] LABS: GLUCOMETER DEV NAME(LOC) 2WR.2; GLUCOSE,POINT OF CARE 101 MG/DL (70-110)
[2019-10-23] MEDS: CAMPHOR/MENTHOL 222 ML LOTION TP PRN (05:56)
[2019-10-23] MEDS: HEPARIN SODIUM,PORCINE 5,000 UNITS/ML VIAL SQ SCH ×3 (09:17→20:09)
[2019-10-23] MEDS: ASPIRIN 81 MG CHEWABLE TABLET PO SCH (09:18)
[2019-10-23] MEDS: VITAMIN B COMP/VIT C/FOLIC ACID CAPSULE PO SCH (09:18)
[2019-10-23] MEDS: THIAMINE HCL 100 MG TABLET PO SCH (09:18)
[2019-10-23] MEDS: OMEPRAZOLE 20 MG CAPSULE PO SCH (09:18)
[2019-10-23] MEDS: DARBEPOETIN ALFA 60 MCG/0.3 ML SYRINGE SQ SCH (09:18)
[2019-10-23] MEDS: DOCUSATE SODIUM 100 MG CAPSULE PO SCH ×2 (09:18→19:53)
[2019-10-23] MEDS: ESCITALOPRAM OXALATE 20 MG TABLET PO SCH (09:18)
[2019-10-23] MEDS: COLD CREAM, SKIN EMOLLIENT 170 GM JAR TP SCH ×2 (09:27→20:07)
[2019-10-23 11:26] VITALS: BP 150/75
[2019-10-23] MEDS ORDERED: SODIUM CHLORIDE 0.9% 2,000 ML ONE (13:37)
[2019-10-23] MEDS: ATORVASTATIN CALCIUM 40 MG TABLET PO SCH (19:53)
[2019-10-23] MEDS: LANSOPRAZOLE 30 MG SOLUBLE TABLET PO SCH (19:53)
[2019-10-23] MEDS: SENNA 187 MG TABLET PO SCH (19:53)
[2019-10-23 20:00] VITALS: BP 134/72
[2019-10-23 20:52] LABS: GLUCOMETER DEV NAME(LOC) 2WR.2; GLUCOSE,POINT OF CARE 74 MG/DL (70-110)
[2019-10-24 02:10] VITALS: BP 144/71
[2019-10-24 05:39] LABS: GLUCOMETER DEV NAME(LOC) 2WR.2; GLUCOSE,POINT OF CARE 103 MG/DL (70-110)
[2019-10-24] MEDS: VITAMIN B COMP/VIT C/FOLIC ACID CAPSULE PO SCH (08:45)
[2019-10-24] MEDS: OMEPRAZOLE 20 MG CAPSULE PO SCH (08:45)
[2019-10-24] MEDS: HEPARIN SODIUM,PORCINE 5,000 UNITS/ML VIAL SQ SCH ×3 (08:46→20:55)
[2019-10-24] MEDS: COLD CREAM, SKIN EMOLLIENT 170 GM JAR TP SCH ×2 (08:46→20:55)
[2019-10-24] MEDS: ASPIRIN 81 MG CHEWABLE TABLET PO SCH (08:46)
[2019-10-24] MEDS: ESCITALOPRAM OXALATE 20 MG TABLET PO SCH (08:46)
[2019-10-24] MEDS: DOCUSATE SODIUM 100 MG CAPSULE PO SCH ×2 (08:46→20:54)
[2019-10-24] MEDS: THIAMINE HCL 100 MG TABLET PO SCH (08:46)
[2019-10-24 10:00] VITALS: BP 147/79
[2019-10-24] MEDS ORDERED: LIDOCAINE/PF 1% 2 ML VIAL INJ ONE (12:00)
[2019-10-24 15:59] VITALS: BP 158/87
[2019-10-24 18:51] LABS: GLUCOMETER DEV NAME(LOC) 2WR.1C; GLUCOSE,POINT OF CARE 77 MG/DL (70-110)
[2019-10-24] MEDS: ATORVASTATIN CALCIUM 40 MG TABLET PO SCH (20:54)
[2019-10-24] MEDS: LANSOPRAZOLE 30 MG SOLUBLE TABLET PO SCH (20:54)
[2019-10-24] MEDS: SENNA 187 MG TABLET PO SCH (20:54)
[2019-10-24 23:00] VITALS: BP 153/81
[2019-10-24] MEDS ORDERED: ASPI-728 PO (23:49)
[2019-10-24] MEDS ORDERED: [UNRECOGNIZED DRUG - CODE] SQ (23:49)
[2019-10-24] MEDS ORDERED: B CO1CAP6 PO (23:49)
[2019-10-24] MEDS ORDERED: LANS30TA4 PO (23:49)
[2019-10-24] MEDS ORDERED: ESCI20TA PO (23:49)
[2019-10-24] MEDS ORDERED: THIA100T67 PO (23:49)
[2019-10-24] MEDS ORDERED: DOCU-275 PO (23:49)
[2019-10-25] MEDS: CAMPHOR/MENTHOL 222 ML LOTION TP PRN (03:54)
[2019-10-25 06:02] LABS: GLUCOMETER DEV NAME(LOC) 2WR.1C; GLUCOSE,POINT OF CARE 121 MG/DL (70-110)
[2019-10-25 06:43] LABS: BASOPHILS % (AUTO) 0.8 % (0.0-2.0); EOSINOPHILS % (AUTO) 10.6 % (1.0-6.0); HEMATOCRIT 29.5 % (41-53); HEMOGLOBIN 10.1 g/dL (13.5-17.5); LYMPHOCYTES # (AUTO) 1.7 K/uL (1.0-4.8); LYMPHOCYTES % (AUTO) 21.7 % (22.0-44.0); MEAN CORPUSCULAR HGB CONC 34.1 G/dL (31.0-37.0); MEAN CORPUSCULAR VOLUME 91 fL (80-100); MONOCYTES # (AUTO) 0.9 K/uL (0.1-1.0); MONOCYTES % (AUTO) 11.7 % (2.0-9.0); NEUTROPHILS # (AUTO) 4.3 K/uL (1.8-7.7); NEUTROPHILS % (AUTO) 55.2 % (40.0-70.0); PLATELET COUNT (AUTO) 314 K/uL (150-450); RED BLOOD CELL COUNT(AUTO) 3.24 MIL/uL (4.50-5.90); RED CELL DISTRIBUTION WIDTH 18.9 % (11.5-14.5)
[2019-10-25 06:58] LABS: CALCIUM, TOTAL 8.3 mg/dL (8.8-10.5); CREATININE 4.88 mg/dL (0.60-1.30); PHOSPHORUS 2.3 mg/dL (2.5-4.9); POTASSIUM 4.2 mmol/L (3.5-5.1)
[2019-10-25 07:30] VITALS: BP 147/75
[2019-10-25] MEDS: THIAMINE HCL 100 MG TABLET PO SCH (08:34)
[2019-10-25] MEDS: VITAMIN B COMP/VIT C/FOLIC ACID CAPSULE PO SCH (08:34)
[2019-10-25] MEDS: ESCITALOPRAM OXALATE 20 MG TABLET PO SCH (08:34)
[2019-10-25] MEDS: DOCUSATE SODIUM 100 MG CAPSULE PO SCH ×2 (08:34→21:25)
[2019-10-25] MEDS: OMEPRAZOLE 20 MG CAPSULE PO SCH (08:34)
[2019-10-25] MEDS: ASPIRIN 81 MG CHEWABLE TABLET PO SCH (08:34)
[2019-10-25] MEDS: HEPARIN SODIUM,PORCINE 5,000 UNITS/ML VIAL SQ SCH ×3 (08:35→21:26)
[2019-10-25] MEDS: COLD CREAM, SKIN EMOLLIENT 170 GM JAR TP SCH ×2 (08:35→21:29)
[2019-10-25] MEDS ORDERED: GABA-529 PO (15:23)
[2019-10-25 16:04] VITALS: BP 148/71
[2019-10-25] MEDS: BENZONATATE 100 MG CAPSULE PO PRN ×2 (17:00→21:29)
[2019-10-25] MEDS: LANSOPRAZOLE 30 MG SOLUBLE TABLET PO SCH (21:25)
[2019-10-25] MEDS: SENNA 187 MG TABLET PO SCH (21:26)
[2019-10-25] MEDS: ATORVASTATIN CALCIUM 40 MG TABLET PO SCH (21:26)
[2019-10-25 21:45] LABS: GLUCOMETER DEV NAME(LOC) 2WR.1C; GLUCOSE,POINT OF CARE 118 MG/DL (70-110)
[2019-10-25 23:44] VITALS: BP 144/80
[2019-10-26] MEDS: ONDANSETRON HCL 4 MG TABLET PO PRN ×2 (00:13→08:07)
[2019-10-26] MEDS: CAMPHOR/MENTHOL 222 ML LOTION TP PRN (00:13)
[2019-10-26 07:22] VITALS: BP 142/67
[2019-10-26 07:24] LABS: GLUCOMETER DEV NAME(LOC) 2WR.2; GLUCOSE,POINT OF CARE 107 MG/DL (70-110)
[2019-10-26] MEDS: OMEPRAZOLE 20 MG CAPSULE PO SCH (08:02)
[2019-10-26] MEDS: ESCITALOPRAM OXALATE 20 MG TABLET PO SCH (08:02)
[2019-10-26] MEDS: THIAMINE HCL 100 MG TABLET PO SCH (08:02)
[2019-10-26] MEDS: VITAMIN B COMP/VIT C/FOLIC ACID CAPSULE PO SCH (08:02)
[2019-10-26] MEDS: DOCUSATE SODIUM 100 MG CAPSULE PO SCH ×2 (08:02→21:09)
[2019-10-26] MEDS: HEPARIN SODIUM,PORCINE 5,000 UNITS/ML VIAL SQ SCH ×3 (08:03→21:10)
[2019-10-26] MEDS: ASPIRIN 81 MG CHEWABLE TABLET PO SCH (08:03)
[2019-10-26] MEDS: COLD CREAM, SKIN EMOLLIENT 170 GM JAR TP SCH ×2 (08:08→21:10)
[2019-10-26] MEDS ORDERED: SODIUM CHLORIDE 0.9% 2,000 ML ONE (14:06)
[2019-10-26 19:03] VITALS: BP 129/61
[2019-10-26] MEDS: SENNA 187 MG TABLET PO SCH (21:10)
[2019-10-26] MEDS: LANSOPRAZOLE 30 MG SOLUBLE TABLET PO SCH (21:10)
[2019-10-26] MEDS: ATORVASTATIN CALCIUM 40 MG TABLET PO SCH (21:10)
[2019-10-26 22:37] LABS: GLUCOMETER DEV NAME(LOC) 2WR.1C; GLUCOSE,POINT OF CARE 76 MG/DL (70-110)
[2019-10-27] VITALS: BP 149/79
[2019-10-27] MEDS: BENZONATATE 100 MG CAPSULE PO PRN (02:27)
[2019-10-27 06:09] LABS: GLUCOMETER DEV NAME(LOC) 2WR.2; GLUCOSE,POINT OF CARE 123 MG/DL (70-110)
[2019-10-27 07:27] VITALS: BP 140/73
[2019-10-27] MEDS: VITAMIN B COMP/VIT C/FOLIC ACID CAPSULE PO SCH (07:55)
[2019-10-27] MEDS: HEPARIN SODIUM,PORCINE 5,000 UNITS/ML VIAL SQ SCH ×3 (07:55→20:29)
[2019-10-27] MEDS: ESCITALOPRAM OXALATE 20 MG TABLET PO SCH (07:55)
[2019-10-27] MEDS: OMEPRAZOLE 20 MG CAPSULE PO SCH (07:55)
[2019-10-27] MEDS: ASPIRIN 81 MG CHEWABLE TABLET PO SCH (07:55)
[2019-10-27] MEDS: THIAMINE HCL 100 MG TABLET PO SCH (07:55)
[2019-10-27] MEDS: COLD CREAM, SKIN EMOLLIENT 170 GM JAR TP SCH ×2 (07:55→20:30)
[2019-10-27] MEDS: DOCUSATE SODIUM 100 MG CAPSULE PO SCH ×2 (07:55→20:29)
[2019-10-27] MEDS: ONDANSETRON HCL 4 MG TABLET PO PRN (08:53)
[2019-10-27 15:20] VITALS: BP 134/65
[2019-10-27] MEDS: CAMPHOR/MENTHOL 222 ML LOTION TP PRN (16:08)
[2019-10-27 17:44] LABS: GLUCOMETER DEV NAME(LOC) 2WR.2; GLUCOSE,POINT OF CARE 94 MG/DL (70-110)
[2019-10-27 17:44] LABS: GLUCOMETER DEV NAME(LOC) 2WR.1C; GLUCOSE,POINT OF CARE 117 MG/DL (70-110)
[2019-10-27] MEDS: ATORVASTATIN CALCIUM 40 MG TABLET PO SCH (20:29)
[2019-10-27] MEDS: SENNA 187 MG TABLET PO SCH (20:29)
[2019-10-27] MEDS: LANSOPRAZOLE 30 MG SOLUBLE TABLET PO SCH (20:29)
[2019-10-27 23:46] VITALS: BP 136/67
[2019-10-28] MEDS: CAMPHOR/MENTHOL 222 ML LOTION TP PRN ×2 (03:38→20:48)
[2019-10-28 06:21] LABS: GLUCOMETER DEV NAME(LOC) 2WR.1C; GLUCOSE,POINT OF CARE 82 MG/DL (70-110)
[2019-10-28 07:45] VITALS: BP 150/86
[2019-10-28] MEDS: HEPARIN SODIUM,PORCINE 5,000 UNITS/ML VIAL SQ SCH ×3 (08:04→20:48)
[2019-10-28] MEDS: COLD CREAM, SKIN EMOLLIENT 170 GM JAR TP SCH ×2 (08:04→20:56)
[2019-10-28] MEDS: THIAMINE HCL 100 MG TABLET PO SCH (08:04)
[2019-10-28] MEDS: VITAMIN B COMP/VIT C/FOLIC ACID CAPSULE PO SCH (08:04)
[2019-10-28] MEDS: ASPIRIN 81 MG CHEWABLE TABLET PO SCH (08:04)
[2019-10-28] MEDS: DOCUSATE SODIUM 100 MG CAPSULE PO SCH ×2 (08:04→20:48)
[2019-10-28] MEDS: OMEPRAZOLE 20 MG CAPSULE PO SCH (08:04)
[2019-10-28] MEDS: ESCITALOPRAM OXALATE 20 MG TABLET PO SCH (08:04)
[2019-10-28 19:00] VITALS: BP 129/72
[2019-10-28] MEDS: ACETAMINOPHEN 650 MG/20.3 ML SOLUTION UDCUP JT PRN (20:47)
[2019-10-28] MEDS: LANSOPRAZOLE 30 MG SOLUBLE TABLET PO SCH (20:48)
[2019-10-28] MEDS: SENNA 187 MG TABLET PO SCH (20:48)
[2019-10-28] MEDS: ATORVASTATIN CALCIUM 40 MG TABLET PO SCH (20:48)
[2019-10-28] MEDS: BENZONATATE 100 MG CAPSULE PO PRN (20:56)
[2019-10-28 22:17] LABS: GLUCOMETER DEV NAME(LOC) 2WR.2; GLUCOSE,POINT OF CARE 86 MG/DL (70-110)
[2019-10-29 01:11] VITALS: BP 157/79
[2019-10-29 07:45] VITALS: BP 154/81
[2019-10-29] MEDS: ESCITALOPRAM OXALATE 20 MG TABLET PO SCH (10:13)
[2019-10-29] MEDS: ASPIRIN 81 MG CHEWABLE TABLET PO SCH (10:13)
[2019-10-29] MEDS: VITAMIN B COMP/VIT C/FOLIC ACID CAPSULE PO SCH (10:13)
[2019-10-29] MEDS: DOCUSATE SODIUM 100 MG CAPSULE PO SCH ×2 (10:14→20:48)
[2019-10-29] MEDS: OMEPRAZOLE 20 MG CAPSULE PO SCH (10:14)
[2019-10-29] MEDS: THIAMINE HCL 100 MG TABLET PO SCH (10:14)
[2019-10-29] MEDS: HEPARIN SODIUM,PORCINE 5,000 UNITS/ML VIAL SQ SCH ×3 (10:14→20:48)
[2019-10-29] MEDS: COLD CREAM, SKIN EMOLLIENT 170 GM JAR TP SCH ×2 (10:15→20:48)
[2019-10-29 13:19] LABS: GLUCOMETER DEV NAME(LOC) 2WR.1C; GLUCOSE,POINT OF CARE 75 MG/DL (70-110)
[2019-10-29 15:45] VITALS: BP 100/76
[2019-10-29] MEDS: ACETAMINOPHEN 650 MG/20.3 ML SOLUTION UDCUP JT PRN (15:57)
[2019-10-29 18:17] LABS: GLUCOMETER DEV NAME(LOC) 2WR.2; GLUCOSE,POINT OF CARE 91 MG/DL (70-110)
[2019-10-29] MEDS: ATORVASTATIN CALCIUM 40 MG TABLET PO SCH (20:48)
[2019-10-29] MEDS: LANSOPRAZOLE 30 MG SOLUBLE TABLET PO SCH (20:48)
[2019-10-29] MEDS: SENNA 187 MG TABLET PO SCH (20:48)
[2019-10-29 23:20] VITALS: BP 140/50
[2019-10-30 05:42] LABS: GLUCOMETER DEV NAME(LOC) 2WR.2; GLUCOSE,POINT OF CARE 78 MG/DL (70-110)
[2019-10-30 07:00] VITALS: BP 152/73
[2019-10-30] MEDS: VITAMIN B COMP/VIT C/FOLIC ACID CAPSULE PO SCH (08:05)
[2019-10-30] MEDS: ASPIRIN 81 MG CHEWABLE TABLET PO SCH (08:05)
[2019-10-30] MEDS: ESCITALOPRAM OXALATE 20 MG TABLET PO SCH (08:05)
[2019-10-30] MEDS: DOCUSATE SODIUM 100 MG CAPSULE PO SCH ×2 (08:05→21:30)
[2019-10-30] MEDS: HEPARIN SODIUM,PORCINE 5,000 UNITS/ML VIAL SQ SCH ×3 (08:05→21:30)
[2019-10-30] MEDS: COLD CREAM, SKIN EMOLLIENT 170 GM JAR TP SCH ×2 (08:05→21:30)
[2019-10-30] MEDS: THIAMINE HCL 100 MG TABLET PO SCH (08:05)
[2019-10-30] MEDS: DARBEPOETIN ALFA 60 MCG/0.3 ML SYRINGE SQ SCH (08:07)
[2019-10-30 13:36] VITALS: BP 151/60
[2019-10-30 15:42] VITALS: BP 158/80
[2019-10-30 17:35] LABS: GLUCOMETER DEV NAME(LOC) 2WR.1C; GLUCOSE,POINT OF CARE 87 MG/DL (70-110)
[2019-10-30] MEDS: LANSOPRAZOLE 30 MG SOLUBLE TABLET PO SCH (21:30)
[2019-10-30] MEDS: ATORVASTATIN CALCIUM 40 MG TABLET PO SCH (21:30)
[2019-10-30] MEDS: SENNA 187 MG TABLET PO SCH (21:30)
[2019-10-30 21:34] VITALS: BP 109/62
[2019-10-30 21:57] VITALS: BP 111/62
[2019-10-31] MEDS: CAMPHOR/MENTHOL 222 ML LOTION TP PRN (00:34)
[2019-10-31 00:43] VITALS: BP 127/68
[2019-10-31 06:14] LABS: GLUCOMETER DEV NAME(LOC) 2WR.2; GLUCOSE,POINT OF CARE 79 MG/DL (70-110)
[2019-10-31 07:30] VITALS: BP 155/79
[2019-10-31] MEDS: ESCITALOPRAM OXALATE 20 MG TABLET PO SCH (08:34)
[2019-10-31] MEDS: VITAMIN B COMP/VIT C/FOLIC ACID CAPSULE PO SCH (08:34)
[2019-10-31] MEDS: THIAMINE HCL 100 MG TABLET PO SCH (08:34)
[2019-10-31] MEDS: HEPARIN SODIUM,PORCINE 5,000 UNITS/ML VIAL SQ SCH ×3 (08:35→20:03)
[2019-10-31] MEDS: ASPIRIN 81 MG CHEWABLE TABLET PO SCH (08:35)
[2019-10-31] MEDS: DOCUSATE SODIUM 100 MG CAPSULE PO SCH ×2 (08:35→20:03)
[2019-10-31] MEDS: COLD CREAM, SKIN EMOLLIENT 170 GM JAR TP SCH ×2 (08:35→20:07)
[2019-10-31 09:45] VITALS: BP 155/79
[2019-10-31 16:05] VITALS: BP 139/82
[2019-10-31] MEDS: ATORVASTATIN CALCIUM 40 MG TABLET PO SCH (20:03)
[2019-10-31] MEDS: SENNA 187 MG TABLET PO SCH (20:03)
[2019-10-31] MEDS: LANSOPRAZOLE 30 MG SOLUBLE TABLET PO SCH (20:03)
[2019-10-31 21:42] LABS: GLUCOMETER DEV NAME(LOC) 2WR.2; GLUCOSE,POINT OF CARE 91 MG/DL (70-110)
[2019-10-31 23:58] VITALS: BP 148/80
[2019-11-01 06:19] LABS: GLUCOMETER DEV NAME(LOC) 2WR.1C; GLUCOSE,POINT OF CARE 76 MG/DL (70-110)
[2019-11-01] MEDS: ASPIRIN 81 MG CHEWABLE TABLET PO SCH (08:20)
[2019-11-01] MEDS: ESCITALOPRAM OXALATE 20 MG TABLET PO SCH (08:20)
[2019-11-01] MEDS: THIAMINE HCL 100 MG TABLET PO SCH (08:21)
[2019-11-01] MEDS: HEPARIN SODIUM,PORCINE 5,000 UNITS/ML VIAL SQ SCH ×3 (08:21→20:18)
[2019-11-01] MEDS: COLD CREAM, SKIN EMOLLIENT 170 GM JAR TP SCH ×2 (08:21→20:20)
[2019-11-01] MEDS: DOCUSATE SODIUM 100 MG CAPSULE PO SCH ×2 (08:21→20:18)
[2019-11-01] MEDS: VITAMIN B COMP/VIT C/FOLIC ACID CAPSULE PO SCH (08:21)
[2019-11-01 08:30] VITALS: BP 149/80
[2019-11-01] MEDS: ACETAMINOPHEN 650 MG/20.3 ML SOLUTION UDCUP JT PRN (10:58)
[2019-11-01 16:42] LABS: BASOPHILS % (AUTO) 1.1 % (0.0-2.0); EOSINOPHILS % (AUTO) 10.1 % (1.0-6.0); HEMOGLOBIN 10.9 g/dL (13.5-17.5); LYMPHOCYTES # (AUTO) 2.1 K/uL (1.0-4.8); LYMPHOCYTES % (AUTO) 29.9 % (22.0-44.0); MEAN CORPUSCULAR HEMOGLOBIN 30.3 pg (26.0-34.0); MEAN CORPUSCULAR VOLUME 92 fL (80-100); MONOCYTES # (AUTO) 0.9 K/uL (0.1-1.0); MONOCYTES % (AUTO) 12.7 % (2.0-9.0); NEUTROPHILS # (AUTO) 3.2 K/uL (1.8-7.7); NEUTROPHILS % (AUTO) 46.2 % (40.0-70.0); PLATELET COUNT (AUTO) 378 K/uL (150-450); RED CELL DISTRIBUTION WIDTH 18.5 % (11.5-14.5)
[2019-11-01 16:56] LABS: PROTHROMBIN TIME 10.6 SEC (9.4-11.6)
[2019-11-01 17:00] VITALS: BP 114/60
[2019-11-01 17:49] LABS: GLUCOMETER DEV NAME(LOC) 2WR.2; GLUCOSE,POINT OF CARE 95 MG/DL (70-110)
[2019-11-01] MEDS: SENNA 187 MG TABLET PO SCH (20:18)
[2019-11-01] MEDS: ATORVASTATIN CALCIUM 40 MG TABLET PO SCH (20:18)
[2019-11-01] MEDS: LANSOPRAZOLE 30 MG SOLUBLE TABLET PO SCH (20:18)
[2019-11-01 21:42] LABS: GLUCOMETER DEV NAME(LOC) 2WR.2; GLUCOSE,POINT OF CARE 80 MG/DL (70-110)
[2019-11-02 00:39] VITALS: BP 153/78
[2019-11-02] MEDS ORDERED: B CO1CAP6 PO (00:47)
[2019-11-02 06:15] LABS: GLUCOMETER DEV NAME(LOC) 2WR.1C; GLUCOSE,POINT OF CARE 83 MG/DL (70-110)
[2019-11-02 06:23] LABS: BASOPHILS % (AUTO) 0.8 % (0.0-2.0); EOSINOPHILS % (AUTO) 13.7 % (1.0-6.0); HEMATOCRIT 31.8 % (41-53); HEMOGLOBIN 10.6 g/dL (13.5-17.5); LYMPHOCYTES # (AUTO) 1.8 K/uL (1.0-4.8); LYMPHOCYTES % (AUTO) 26.6 % (22.0-44.0); MEAN CORPUSCULAR HGB CONC 33.2 G/dL (31.0-37.0); MEAN CORPUSCULAR VOLUME 91 fL (80-100); MONOCYTES # (AUTO) 0.6 K/uL (0.1-1.0); MONOCYTES % (AUTO) 9.7 % (2.0-9.0); NEUTROPHILS # (AUTO) 3.3 K/uL (1.8-7.7); NEUTROPHILS % (AUTO) 49.2 % (40.0-70.0); PLATELET COUNT (AUTO) 354 K/uL (150-450); RED BLOOD CELL COUNT(AUTO) 3.52 MIL/uL (4.50-5.90); RED CELL DISTRIBUTION WIDTH 18.1 % (11.5-14.5)
[2019-11-02 06:41] LABS: ALBUMIN 2.2 g/dL (3.4-5.0); BILIRUBIN,TOTAL 0.4 mg/dL (0.1-1.0); CALCIUM, TOTAL 8.6 mg/dL (8.8-10.5); CREATININE 6.98 mg/dL (0.60-1.30); TOTAL PROTEIN, SERUM 7.2 g/dL (6.4-8.2)
[2019-11-02] MEDS: ESCITALOPRAM OXALATE 20 MG TABLET PO SCH (08:04)
[2019-11-02] MEDS: DOCUSATE SODIUM 100 MG CAPSULE PO SCH ×2 (08:04→21:19)
[2019-11-02] MEDS: THIAMINE HCL 100 MG TABLET PO SCH (08:04)
[2019-11-02] MEDS: COLD CREAM, SKIN EMOLLIENT 170 GM JAR TP SCH ×2 (08:05→21:19)
[2019-11-02] MEDS: VITAMIN B COMP/VIT C/FOLIC ACID CAPSULE PO SCH (08:06)
[2019-11-02 08:30] VITALS: BP 153/80
[2019-11-02] MEDS ORDERED: OMEP20 PO (14:17)
[2019-11-02] MEDS ORDERED: SODIUM CHLORIDE 0.9% 1,000 ML ONE ×2 (16:17→16:36)
[2019-11-02] MEDS ORDERED: SODIUM CHLORIDE 0.9% 0 ML ONE (16:17)
[2019-11-02] MEDS: 0.9% SODIUM CHLORIDE 10 ML SYRINGE IVP SCH (16:46)
[2019-11-02 18:09] VITALS: BP 152/79
[2019-11-02] MEDS: LANSOPRAZOLE 30 MG SOLUBLE TABLET PO SCH (21:18)
[2019-11-02] MEDS: ATORVASTATIN CALCIUM 40 MG TABLET PO SCH (21:18)
[2019-11-02] MEDS: SENNA 187 MG TABLET PO SCH (21:19)
[2019-11-02 21:30] LABS: GLUCOMETER DEV NAME(LOC) 2WR.1C; GLUCOSE,POINT OF CARE 88 MG/DL (70-110)
[2019-11-02] MEDS: CAMPHOR/MENTHOL 222 ML LOTION TP PRN (21:43)
[2019-11-03] MEDS: 0.9% SODIUM CHLORIDE 10 ML SYRINGE IVP SCH ×2 (00:55→08:42)
[2019-11-03 01:00] VITALS: BP 108/59
[2019-11-03 06:27] LABS: GLUCOMETER DEV NAME(LOC) 2WR.1C; GLUCOSE,POINT OF CARE 79 MG/DL (70-110)
[2019-11-03 07:30] VITALS: BP 143/75
[2019-11-03] MEDS: THIAMINE HCL 100 MG TABLET PO SCH (08:41)
[2019-11-03] MEDS: DOCUSATE SODIUM 100 MG CAPSULE PO SCH (08:41)
[2019-11-03] MEDS: VITAMIN B COMP/VIT C/FOLIC ACID CAPSULE PO SCH (08:41)
[2019-11-03] MEDS: ESCITALOPRAM OXALATE 20 MG TABLET PO SCH (08:41)
[2019-11-03] MEDS: COLD CREAM, SKIN EMOLLIENT 170 GM JAR TP SCH (08:42)
[2019-11-03] MEDS ORDERED: ASPIRIN 81 MG CHEWABLE TABLET PO SCH (09:00)
[2019-11-03] MEDS ORDERED: LANS30 PO (11:58)
== END 2019-11-03 14:40 | disposition home health service (06) | DRG 64 ==
LOC: 2WR 15:05
PROVIDERS: ADMIT Physical Medicine & Rehabilitation; ATTEND Physical Medicine & Rehabilitation
PROC: 5A1D70Z Performance of Urinary Filtration, Intermittent, Less than 6 Hours Per Day (ICD-10-PCS; 2019-10-17)
PROC: 5A1D70Z Performance of Urinary Filtration, Intermittent, Less than 6 Hours Per Day (ICD-10-PCS; 2019-10-19)
PROC: 5A1D70Z Performance of Urinary Filtration, Intermittent, Less than 6 Hours Per Day (ICD-10-PCS; 2019-10-21)
PROC: 5A1D70Z Performance of Urinary Filtration, Intermittent, Less than 6 Hours Per Day (ICD-10-PCS; 2019-10-23)
PROC: 5A1D70Z Performance of Urinary Filtration, Intermittent, Less than 6 Hours Per Day (ICD-10-PCS; 2019-10-26)
PROC: 5A1D70Z Performance of Urinary Filtration, Intermittent, Less than 6 Hours Per Day (ICD-10-PCS; 2019-10-28)
PROC: 5A1D70Z Performance of Urinary Filtration, Intermittent, Less than 6 Hours Per Day (ICD-10-PCS; 2019-10-30)
PROC: 0DPDXUZ Removal of Feeding Device from Lower Intestinal Tract, External Approach (ICD-10-PCS; principal; 2019-11-02)
PROC: 5A1D70Z Performance of Urinary Filtration, Intermittent, Less than 6 Hours Per Day (ICD-10-PCS; 2019-11-02)
DX: I63.9 Cerebral infarction, unspecified (principal); N18.6 End stage renal disease; I13.2 Hypertensive heart and chronic kidney disease with heart failure and with stage 5 chronic kidney disease, or end stage renal disease; G93.40 Encephalopathy, unspecified; E87.1 Hypo-osmolality and hyponatremia; D63.8 Anemia in other chronic diseases classified elsewhere; E11.22 Type 2 diabetes mellitus with diabetic chronic kidney disease; E11.40 Type 2 diabetes mellitus with diabetic neuropathy, unspecified; R13.10 Dysphagia, unspecified; I50.9 Heart failure, unspecified; E11.51 Type 2 diabetes mellitus with diabetic peripheral angiopathy without gangrene; I25.10 Atherosclerotic heart disease of native coronary artery without angina pectoris; E11.649 Type 2 diabetes mellitus with hypoglycemia without coma; E78.5 Hyperlipidemia, unspecified; F32.9 Major depressive disorder, single episode, unspecified; K29.70 Gastritis, unspecified, without bleeding; L89.609 Pressure ulcer of unspecified heel, unspecified stage; Z79.899 Other long term (current) drug therapy; Z93.1 Gastrostomy status; Z95.1 Presence of aortocoronary bypass graft; Z99.2 Dependence on renal dialysis; Z93.4 Other artificial openings of gastrointestinal tract status
CPT/HCPCS: 83036; 83540; 83550; 83735; 84100; 84134; 87081; 87340; 92507; 92508; 92526; 92610; 93970; 97110; 97112; 97116; 97150; 97163; 97166; 97530; 97535; 99242; 99366; J0881; J1644; J3490; J7030; Q0162

== ENCOUNTER 2019-11-18 05:08 | Inpatient (IN) | payer BC, MEDICAID ==
[~2019-11-18] VITALS: Ht 170.2 cm; Wt 64.2 kg
[~2019-11-18 05:08] MED LIST changes: -ACET-66 PO; -ASPI-556 PO; +ASPI-728 PO; -CHOL100018 PO; +DOCU-275 PO; +ESCI20TA PO; +LANS30 PO; -OMEP20 PO; +THIA100T67 PO
[2019-11-18 06:43] LABS: BASOPHILS % (AUTO) 0.6 % (0.0-2.0); EOSINOPHILS % (AUTO) 3.8 % (1.0-6.0); HEMATOCRIT 34.6 % (41-53); HEMOGLOBIN 11.4 g/dL (13.5-17.5); LYMPHOCYTES # (AUTO) 1.3 K/uL (1.0-4.8); LYMPHOCYTES % (AUTO) 10.7 % (22.0-44.0); MEAN CORPUSCULAR HEMOGLOBIN 29.4 pg (26.0-34.0); MEAN CORPUSCULAR HGB CONC 32.8 G/dL (31.0-37.0); MEAN CORPUSCULAR VOLUME 90 fL (80-100); MONOCYTES # (AUTO) 1.1 K/uL (0.1-1.0); MONOCYTES % (AUTO) 8.8 % (2.0-9.0); NEUTROPHILS # (AUTO) 9.5 K/uL (1.8-7.7); NEUTROPHILS % (AUTO) 76.1 % (40.0-70.0); PLATELET COUNT (AUTO) 341 K/uL (150-450); RED BLOOD CELL COUNT(AUTO) 3.87 MIL/uL (4.50-5.90); RED CELL DISTRIBUTION WIDTH 17.4 % (11.5-14.5)
[2019-11-18] MEDS ORDERED: ONDANSETRON HCL 4 MG/2 ML VIAL IVP ONE (06:45)
[2019-11-18 06:53] LABS: CALCIUM, TOTAL 8.3 mg/dL (8.8-10.5); CREATININE 12.95 mg/dL (0.60-1.30); POTASSIUM 3.1 mmol/L (3.5-5.1)
[2019-11-18 06:59] LABS: ALBUMIN 2.2 g/dL (3.4-5.0); BILIRUBIN,TOTAL 0.4 mg/dL (0.1-1.0); TOTAL PROTEIN, SERUM 6.8 g/dL (6.4-8.2)
[2019-11-18] MEDS ORDERED: MECLIZINE HCL 25 MG TABLET PO ONE (07:45)
[2019-11-18] MEDS ORDERED: BISACODYL 10 MG RECTAL RECTAL SUPPOSITORY PR PRN (09:00)
[2019-11-18] MEDS ORDERED: POTASSIUM CHLORIDE 10% 40 MEQ/30 ML LIQUID UDCUP PO ONE (09:00)
[2019-11-18] MEDS ORDERED: ACETAMINOPHEN 325 MG TABLET PO PRN (09:00)
[2019-11-18] MEDS ORDERED: ONDANSETRON HCL 4 MG/2 ML VIAL IVP PRN (09:00)
[2019-11-18] MEDS: HEPARIN SODIUM,PORCINE 5,000 UNITS/ML VIAL SQ SCH ×2 (09:16→20:27)
[2019-11-18] MEDS: FAMOTIDINE 20 MG TABLET PO SCH (09:17)
[2019-11-18] MEDS: DOCUSATE SODIUM 100 MG CAPSULE PO SCH ×2 (09:17→20:27)
[2019-11-18] MEDS: ASPIRIN 81 MG CHEWABLE TABLET PO SCH (09:18)
[2019-11-18 14:28] VITALS: BP 156/78
[2019-11-18 14:33] VITALS: BP 156/78
[2019-11-18] MEDS: VITAMIN B COMP/VIT C/FOLIC ACID CAPSULE PO SCH (17:08)
[2019-11-18 19:39] VITALS: BP 130/67
[2019-11-18] MEDS ORDERED: ATORVASTATIN CALCIUM 20 MG TABLET PO SCH (21:00)
[2019-11-18 23:42] VITALS: BP 135/66
[2019-11-19 04:56] VITALS: BP 128/65
[2019-11-19 07:54] VITALS: BP 140/69
[2019-11-19] MEDS: FAMOTIDINE 20 MG TABLET PO SCH (08:26)
[2019-11-19] MEDS: ASPIRIN 81 MG CHEWABLE TABLET PO SCH (08:26)
[2019-11-19] MEDS: HEPARIN SODIUM,PORCINE 5,000 UNITS/ML VIAL SQ SCH (08:27)
[2019-11-19] MEDS: VITAMIN B COMP/VIT C/FOLIC ACID CAPSULE PO SCH (08:27)
[2019-11-19] MEDS: DOCUSATE SODIUM 100 MG CAPSULE PO SCH (08:31)
[2019-11-19 11:25] VITALS: BP 112/57
[2019-11-19 12:47] LABS: BASOPHILS % (AUTO) 0.5 % (0.0-2.0); EOSINOPHILS % (AUTO) 6.9 % (1.0-6.0); HEMATOCRIT 33.8 % (41-53); HEMOGLOBIN 11.4 g/dL (13.5-17.5); LYMPHOCYTES # (AUTO) 1.3 K/uL (1.0-4.8); MEAN CORPUSCULAR HEMOGLOBIN 30.1 pg (26.0-34.0); MEAN CORPUSCULAR HGB CONC 33.7 G/dL (31.0-37.0); MEAN CORPUSCULAR VOLUME 89 fL (80-100); MONOCYTES # (AUTO) 0.9 K/uL (0.1-1.0); NEUTROPHILS # (AUTO) 7.4 K/uL (1.8-7.7); NEUTROPHILS % (AUTO) 71.6 % (40.0-70.0); PLATELET COUNT (AUTO) 337 K/uL (150-450); RED BLOOD CELL COUNT(AUTO) 3.79 MIL/uL (4.50-5.90); RED CELL DISTRIBUTION WIDTH 16.9 % (11.5-14.5)
[2019-11-19 13:03] LABS: CALCIUM, TOTAL 7.8 mg/dL (8.8-10.5); CREATININE 13.97 mg/dL (0.60-1.30); POTASSIUM 3.9 mmol/L (3.5-5.1)
== END 2019-11-19 15:54 | disposition home or self-care (01) | DRG 314 ==
LOC: EMS 05:08 → 5S 12:27 → 5N 14:02
PROVIDERS: ADMIT Internal Medicine; ATTEND Internal Medicine
DX: I95.9 Hypotension, unspecified (principal); I63.81 Other cerebral infarction due to occlusion or stenosis of small artery; E43 Unspecified severe protein-calorie malnutrition; N18.6 End stage renal disease; I13.2 Hypertensive heart and chronic kidney disease with heart failure and with stage 5 chronic kidney disease, or end stage renal disease; R42 Dizziness and giddiness; E87.6 Hypokalemia; I25.10 Atherosclerotic heart disease of native coronary artery without angina pectoris; E11.22 Type 2 diabetes mellitus with diabetic chronic kidney disease; I50.9 Heart failure, unspecified; D64.9 Anemia, unspecified; N28.9 Disorder of kidney and ureter, unspecified; Z68.22 Body mass index [BMI] 22.0-22.9, adult; Z95.1 Presence of aortocoronary bypass graft; Z99.2 Dependence on renal dialysis
CPT/HCPCS: 70450; 87081; 93005; 93306; J1644; J2405

== ENCOUNTER 2019-11-28 06:14 | Emergency (ER) | payer BC, MEDICAID ==
[~2019-11-28] VITALS: Ht 165.1 cm; Wt 65.4 kg
[~2019-11-28 06:14] MED LIST changes: -ESCI20TA PO
[2019-11-28] MEDS ORDERED: ESCI5SOL2 PO (06:30)
[2019-11-28] MEDS ORDERED: LOPE-202 PO (06:30)
[2019-11-28] MEDS ORDERED: BACITRACIN 0.9 GM PACKET OINTMENT TP ONE (06:30)
[2019-11-28] MEDS ORDERED: LIDOCAINE 1%/EPI 1:200,000/PF 10 ML VIAL INJ ONE (06:30)
[2019-11-28 06:43] LABS: BASOPHILS % (AUTO) 0.8 % (0.0-2.0); HEMATOCRIT 31.8 % (41-53); HEMOGLOBIN 10.6 g/dL (13.5-17.5); LYMPHOCYTES # (AUTO) 2.1 K/uL (1.0-4.8); LYMPHOCYTES % (AUTO) 18.6 % (22.0-44.0); MEAN CORPUSCULAR HEMOGLOBIN 29.9 pg (26.0-34.0); MEAN CORPUSCULAR HGB CONC 33.4 G/dL (31.0-37.0); MEAN CORPUSCULAR VOLUME 89 fL (80-100); MONOCYTES % (AUTO) 8.9 % (2.0-9.0); NEUTROPHILS # (AUTO) 7.3 K/uL (1.8-7.7); NEUTROPHILS % (AUTO) 64.7 % (40.0-70.0); PLATELET COUNT (AUTO) 413 K/uL (150-450); RED BLOOD CELL COUNT(AUTO) 3.56 MIL/uL (4.50-5.90); RED CELL DISTRIBUTION WIDTH 16.5 % (11.5-14.5)
[2019-11-28 06:55] LABS: PROTHROMBIN TIME 10.6 SEC (9.4-11.6)
[2019-11-28 06:57] LABS: CREATININE 6.01 mg/dL (0.60-1.30)
[2019-11-28 06:58] LABS: BILIRUBIN,TOTAL 0.5 mg/dL (0.1-1.0); CALCIUM, TOTAL 7.9 mg/dL (8.8-10.5)
[2019-11-28] MEDS ORDERED: ACETAMINOPHEN 500 MG TABLET PO ONE (07:00)
[2019-11-28 07:02] LABS: POTASSIUM 2.6 mmol/L (3.5-5.1)
[2019-11-28] MEDS ORDERED: POTASSIUM CHL 10 MEQ/WATER 50 ML IV SCH (07:15)
[2019-11-28] MEDS ORDERED: LIDOCAINE 1%/EPI 1:200,000/PF 30 ML VIAL INJ ONE (07:15)
[2019-11-28] MEDS ORDERED: SODIUM CHLORIDE 0.9% 250 ML IV ONE (07:56)
[2019-11-28 08:35] VITALS: BP 142/73
[2019-11-28 08:47] LABS: GLUCOSE,POINT OF CARE 94 MG/DL (70-110)
== END 2019-11-28 08:55 | disposition short-term general hospital (02) ==
LOC: EMS 06:16
DX: S06.5X0A Traumatic subdural hemorrhage without loss of consciousness, initial encounter (principal); S01.81XA Laceration without foreign body of other part of head, initial encounter; R42 Dizziness and giddiness; E11.22 Type 2 diabetes mellitus with diabetic chronic kidney disease; I13.2 Hypertensive heart and chronic kidney disease with heart failure and with stage 5 chronic kidney disease, or end stage renal disease; N18.6 End stage renal disease; I50.9 Heart failure, unspecified; Z99.2 Dependence on renal dialysis; Z79.899 Other long term (current) drug therapy; Z95.1 Presence of aortocoronary bypass graft; Z79.82 Long term (current) use of aspirin; W18.39XA Other fall on same level, initial encounter; Y92.89 Other specified places as the place of occurrence of the external cause; Y93.89 Activity, other specified; Y99.8 Other external cause status
CPT/HCPCS: 12013; 70450; 72125; 80053; 82962; 83880; 84484; 85025; 85610; 85730; 93005; 96360; 99291; J3480; J3490; J7050; 96361